=== PATIENT | female | born 1965 | race African-American/Black ===

== ENCOUNTER 2023-04-18 17:26 | Emergency (ER) | payer OTHER ==
[2023-04-18 17:34] VITALS: BP 128/72; PULSE 56; RESP 18; TEMP 98; BMI 23.1
[2023-04-18] MEDS ORDERED: DIPHTH,PERTUSS(ACELL),TET 0.5 ML DISP.SYRIN IM ONE ×2 (18:43→18:46)
== END 2023-04-18 18:56 | disposition home or self-care (01) ==
LOC: JERFT 17:26
PROC: 3E0234Z Introduction of Serum, Toxoid and Vaccine into Muscle, Percutaneous Approach (ICD-10-PCS; principal; 2023-04-18)
DX: S00.83XA Contusion of other part of head, initial encounter (principal); W01.0XXA Fall on same level from slipping, tripping and stumbling without subsequent striking against object, initial encounter; Y93.01 Activity, walking, marching and hiking
CPT/HCPCS: 90471; 90715; 99282-25